=== PATIENT | male | born 1965 | race Two or more races ===

== ENCOUNTER 2019-07-12 21:17 | Inpatient (IN) | payer SELFPAY ==
[~2019-07-12] VITALS: Ht 182.9 cm; Wt 58.2 kg
[2019-07-12 21:23] VITALS: BP 143/85
[2019-07-12 21:30] VITALS: BP 143/85
--- NOTE | 2019-07-12 21:30 | NUR ---
TELE/RN ADMITTING NOTES: RECEIVED REPORT FROM RN ESME, PT ARRIVED TO UNIT AT 2130 FROM [facility] IN STABLE CONDITION, VIA GURNEY. A/OX4. VERBALLY RESPONSIVE AND ABLE TO MAKE NEEDS KNOWN. PATIENT STATED HIS SISTER WILL BE ARRIVING IN A FEW MINUTES. NO SOB NOTED, NO S/S OF ACUTE DISTRESS. BREATHING EVEN AND UNLABORED. ON TELE MONITOR WITH READING OF SR 70S. PATIENT IS AMBULATORY BUT INFORMED TO ASK FOR ASSISTANCE TO GO TO THE BATHROOM. SKIN IS INTACT. FULL CODE, ON 2GRAM NA DIET. IV LOCATED ON THE RIGHT FA #18G, INTACT, PATENT AND FLUSHING WELL. INFORMED PATIENT THAT STILL AWAITING FOR ORDERS, AND PLAN OF CARE. ORIENTED PT TO THE UNIT AND STAFF. BELONGINGS LIST CHECKED BY DAMEON SILVA V. NO HOME MEDS REPORTED. CURRENTLY PLACED ON AIRBORNE ISOLATION. SAFETY MEASURES ARE IN PLACE. BED IS IN LOW, LOCKED POSITION WITH SR UP X2. CALL LIGHT WITHIN REACH. WILL CONTINUE MONITORING PT. ACCORDINGLY.
[2019-07-12] MEDS ORDERED: ACETAMINOPHEN 325 MG TABLET PO PRN (22:00)
[2019-07-12] MEDS ORDERED: ONDANSETRON HCL/PF 4 MG/2 ML VIAL IVP PRN (22:00)
[2019-07-12] MEDS ORDERED: MAGNESIUM HYDROXIDE 30 ML UDC PO PRN (22:00)
[2019-07-12] MEDS ORDERED: HYDROCODONE/APAP 5/325MG 1 EACH TABLET PO PRN (22:00)
[2019-07-12] MEDS ORDERED: ZOLPIDEM TARTRATE 5 MG TABLET PO PRN (22:00)
[2019-07-12] MEDS ORDERED: LORAZEPAM INJ 2 MG/ML VIAL IV PRN (22:00)
[2019-07-12] MEDS ORDERED: Z GUARD REMEDY 2 OZ OINT TP PRN (22:00)
--- NOTE | 2019-07-12 22:00 | NUR ---
TELE/RN NOTES: SISTER AND BROTHER AT BED SIDE HELPING TRANSLATE QUESTIONS FOR PATIENT. PATIENT SPEAKS AND UNDERSTANDS [place] BUT PRIMARY LANGUAGE IS [facility]. NEW ORDERS CARRIED OUT AND NOTED. NS RUNNING AT 75ML/HR. ON 2GRAM DIET FOR NOW. VITAL SIGNS ARE WNL. IN STABLE CONDITION, NO COMPLAINS OF PAIN AT THIS TIME. ON ROOM AIR, SATURATING WELL. WILL CONTINUE MONITORING PATIENT ACCORDINGLY.
[2019-07-12] MEDS: IV NS 0.9% 1,000 ML IV PRN (22:53)
[2019-07-13] VITALS: BP 135/78
[2019-07-13] MEDS: FOLIC ACID 1 MG TABLET PO SCH ×2 (01:22→08:38)
[2019-07-13] MEDS: THIAMINE HCL 100 MG TABLET PO SCH ×2 (01:22→08:38)
[2019-07-13] MEDS: CHLORDIAZEPOXIDE HCL 5 MG CAPSULE PO SCH ×3 (01:35→17:05)
[2019-07-13 04:00] VITALS: BP 126/85
--- NOTE | 2019-07-13 06:46 | NUR ---
TELE/RN CLOSING NOTES: PATIENT IS IN STABLE CONDITION. A/OX4. VERBALLY RESPONSIVE AND ABLE TO MAKE NEEDS KNOWN. ON ROOM AIR, NO SOB NOTED, NO S/S OF ACUTE DISTRESS. BREATHING EVEN AND UNLABORED. ON TELE MONITOR WITH READING OF SR 60S. PATIENT IS AMBULATORY BUT INFORMED TO ASK FOR ASSISTANCE TO GO TO THE BATHROOM. IV ON THE RIGHT FA #18G, INTACT, PATENT AND FLUSHING WELL, RUNNING NS AT 75ML/HR. CURRENTLY PLACED ON AIRBORNE ISOLATION. ALL DUE MEDS GIVEN ORDERED. KEPT PATEINT WAMR AND COMFORTBLE THROUGHOUT THE SHIFT. ALL NURSING NEEDS MET AND PROVIDED AT THIS TIME. SAFETY MEASURES KEPT IN PLACE. BED IS IN LOW, LOCKED POSITION WITH SR UP X2. CALL LIGHT WITHIN REACH. WILL ENDORSE TO DAY SHIFT NURSE FOR AYAZ.
[2019-07-13 07:35] LABS: BASOPHILS # (AUTO) 0.1 /CMM (0.0-0.2); BASOPHILS % (AUTO) 1.1 % (0.0-2.0); EOSINOPHILS % (AUTO) 1.5 % (0.0-6.0); HEMATOCRIT 33 % (39-51); HEMOGLOBIN 11.3 g/dL (13.5-17.5); LYMPHOCYTES # (AUTO) 1.7 /CMM (0.8-4.8); LYMPHOCYTES % (AUTO) 35.5 % (20.0-44.0); MEAN CORPUSCULAR HGB CONC 34 g/dl (31.0-36.0); MEAN CORPUSCULAR VOLUME 101 fL (80-96); MONOCYTES # (AUTO) 0.3 /CMM (0.1-1.30); MONOCYTES % (AUTO) 6.4 % (2.0-12.0); NEUTROPHILS # (AUTO) 2.6 /CMM (1.8-8.9); NEUTROPHILS % (AUTO) 55.5 % (43.0-81.0); PLATELET COUNT (AUTO) 68 /CMM (150-450); RED BLOOD CELL COUNT(AUTO) 3.26 MIL/uL (4.5-6.0); WHITE BLOOD COUNT (AUTO) 4.7 K/uL (4.3-11.0)
--- NOTE | 2019-07-13 07:40 | NUR ---
FILM PRODUCER OPENING NOTE PATIENT IN BED RESTING COMFORTABLY. PATIENT IN NO ACUTE DISTRESS. NO SOB NOTED. PATIENT BREATHING IS EVEN AND UNLABORED. PATIENT ON CARDIAC MONITORING READING SINUS BRADYCARDIA HR 55. SAFETY PRECAUTIONS IN PLACE. PATIENT BED IS LOCKED AND IN LOWEST POSITION. CALL LIGHT WITHIN REACH. WILL CONTINUE TO MONITOR.
[2019-07-13 07:42] LABS: CALCIUM, SERUM 7.7 mg/dL (8.5-10.1); CREATININE 0.8 mg/dL (0.6-1.3); MAGNESIUM 1.3 mg/dL (1.8-2.4); PHOSPHORUS 3.1 mg/dL (2.5-4.9); POTASSIUM 3.9 mmol/L (3.5-5.1)
[2019-07-13 08:55] VITALS: BP 120/79
[2019-07-13 09:01] LABS: BAND % (MANUAL) 1 % (0.0-5.0); LYMPHOCYTES % (MANUAL) 34 % (16-48); MONOCYTES % (MANUAL) 4 % (0-11.0); NEUTROPHILS % (MANUAL) 61 (42-76)
[2019-07-13] MEDS: Magnesium 1GM/D5W 100ML PREMIX 100 ML IV SCH ×4 (09:29→13:00)
[2019-07-13] MEDS: IV NS 0.9% 1,000 ML IV PRN (13:00)
[2019-07-13 16:00] VITALS: BP 129/76
--- NOTE | 2019-07-13 18:37 | NUR ---
MS RN CLOSING NOTE PATIENT IN BED RESTING COMFORTABLY. PATIENT IN NO ACUTE DISTRESS. NO SOB NOTED. PATIENT BREATHING IS EVEN AND UNLABORED. PATIENT KEPT CLEAN, DRY, AND COMFORTABLE THROUGHOUT SHIFT. PATIENT MAINTAINED ON ISOLATION PRECAUTIONS. NEED AND CONCERNS ADDRESSED. SAFETY PRECAUTIONS IN PLACE. PATIENT BED IS LOCKED AND IN LOWEST POSITION. CALL LIGHT WITHIN REACH. WILL ENDORSE CARE TO PM SHIFT FOR AYAZ.
--- NOTE | 2019-07-13 19:30 | NUR ---
CHANGE OF SHIFT REPORT Patient in bed, tolerating RA, denies shortness of breath. IVF infusing. Appears comfortable in bed. Droplet, negative pressure isolation precaution, PPE utilized. Instructed to use call light for assistance, verbalized understanding.
[2019-07-13 20:00] VITALS: BP_SYST 126; BP_SYST 135; BP_DIAS 84; BP_DIAS 85
[2019-07-14] MEDS: CHLORDIAZEPOXIDE HCL 5 MG CAPSULE PO SCH ×3 (02:00→16:32)
[2019-07-14] MEDS: IV NS 0.9% 1,000 ML IV PRN ×2 (03:01→16:33)
--- NOTE | 2019-07-14 06:36 | NUR ---
END OF SHIFT REPORT Patient in bed, stable Oxygen saturation on RA. IVF maintained, denies pain. No c/o chest pain, no cough, afebrile overnight. Sputum not available at this time, will collect and send to lab when patient is able to provide, will endorse to oncoming RN. Hourly rounds, slept well. Airborne precaution, PPE utilized.
[2019-07-14 06:51] LABS: BASOPHILS % (AUTO) 0.9 % (0.0-2.0); EOSINOPHILS % (AUTO) 2.8 % (0.0-6.0); HEMATOCRIT 32 % (39-51); LYMPHOCYTES # (AUTO) 1.6 /CMM (0.8-4.8); LYMPHOCYTES % (AUTO) 31.1 % (20.0-44.0); MEAN CORPUSCULAR HGB CONC 34 g/dl (31.0-36.0); MEAN CORPUSCULAR VOLUME 102 fL (80-96); MONOCYTES # (AUTO) 0.4 /CMM (0.1-1.30); NEUTROPHILS # (AUTO) 2.9 /CMM (1.8-8.9); NEUTROPHILS % (AUTO) 58.2 % (43.0-81.0); PLATELET COUNT (AUTO) 61 /CMM (150-450); RED BLOOD CELL COUNT(AUTO) 3.15 MIL/uL (4.5-6.0); WHITE BLOOD COUNT (AUTO) 5.1 K/uL (4.3-11.0)
--- NOTE | 2019-07-14 07:23 | NUR ---
MS RN OPENING NOTE PATIENT IN BED RESTING COMFORTABLY. PATIENT IN NO ACUTE DISTRESS. NO SOB NOTED. PATIENT BREATHING IS EVEN AND UNLABORED. PATIENT MAINTAINED ON ISOLATION PRECAUTIONS. SAFETY PRECAUTIONS IN PLACE. PATIENT BED IS LOCKED AND IN LOWEST POSITION. CALL LIGHT WITHIN REACH. WILL CONTINUE TO MONITOR.
[2019-07-14 07:30] LABS: ALBUMIN 2.8 g/dL (3.4-5.0); BILIRUBIN,TOTAL 0.9 mg/dL (0.2-1.0); CALCIUM, SERUM 7.9 mg/dL (8.5-10.1); CREATININE 0.7 mg/dL (0.6-1.3); MAGNESIUM 1.7 mg/dL (1.8-2.4); PHOSPHORUS 3.3 mg/dL (2.5-4.9); POTASSIUM 3.1 mmol/L (3.5-5.1); TOTAL PROTEIN, SERUM 6.2 g/dL (6.4-8.2)
[2019-07-14 07:48] LABS: BAND % (MANUAL) 1 % (0.0-5.0); EOSINOPHILS % (MANUAL) 3 % (0-4); LYMPHOCYTES % (MANUAL) 31 % (16-48); MONOCYTES % (MANUAL) 7 % (0-11.0); NEUTROPHILS % (MANUAL) 58 (42-76)
[2019-07-14 08:00] VITALS: BP 125/72
[2019-07-14] MEDS: FOLIC ACID 1 MG TABLET PO SCH (08:50)
[2019-07-14] MEDS: THIAMINE HCL 100 MG TABLET PO SCH (08:50)
[2019-07-14] MEDS ORDERED: POTASSIUM CHLORIDE 20 MEQ TAB.PRT.SR PO ONE (09:30)
[2019-07-14] MEDS: Magnesium 1GM/D5W 100ML PREMIX 100 ML IV SCH ×2 (10:19→11:30)
[2019-07-14 16:00] VITALS: BP 143/94
--- NOTE | 2019-07-14 19:48 | NUR ---
RN NOTES RECEIVED PATIENT AWAKE, NO SIGNS OF DISTRESS, IV ACCESS INTACT AND PATENT, IVF INFUSING WELL, SAFETY MEASURES INPLACE, MAINTAINED ON ISOLATION PRECAUTION, DENIES ANY PAIN OR DISCOMFORT AT THIS TIME, CALL LIGHT WITHIN EASY REACH, WILL CONTINUE TO MONITOR ACCORDINGLY.
[2019-07-14 20:00] VITALS: BP 149/99
[2019-07-14 20:50] VITALS: BP 149/99
[2019-07-15] MEDS: CHLORDIAZEPOXIDE HCL 5 MG CAPSULE PO SCH ×3 (01:58→17:35)
[2019-07-15 06:43] LABS: BASOPHILS % (AUTO) 0.8 % (0.0-2.0); EOSINOPHILS % (AUTO) 3.7 % (0.0-6.0); HEMATOCRIT 32 % (39-51); HEMOGLOBIN 11.1 g/dL (13.5-17.5); LYMPHOCYTES # (AUTO) 1.7 /CMM (0.8-4.8); LYMPHOCYTES % (AUTO) 32.8 % (20.0-44.0); MEAN CORPUSCULAR HGB CONC 35 g/dl (31.0-36.0); MEAN CORPUSCULAR VOLUME 102 fL (80-96); MONOCYTES # (AUTO) 0.4 /CMM (0.1-1.30); NEUTROPHILS % (AUTO) 55.7 % (43.0-81.0); PLATELET COUNT (AUTO) 58 /CMM (150-450); RED BLOOD CELL COUNT(AUTO) 3.15 MIL/uL (4.5-6.0); WHITE BLOOD COUNT (AUTO) 5.3 K/uL (4.3-11.0)
--- NOTE | 2019-07-15 06:49 | NUR ---
RN NOTES ALL NEEDS ATTENDED AND MET ABLE TO REST AND SLEPT AT INTERVALS, MAINTAINED ON ISOLATION PRECAUTION, SAFETY MEASURES EMPHASIZED, CALL LIGHT WITHIN EASY REACH, ALL NEEDS ATTENDED, DENIES ANY PAIN AT THIS TIME, WILL ENDORSE TO AM NURSE FOR CONTINUITY OF CARE.
[2019-07-15 07:10] LABS: CALCIUM, SERUM 8.1 mg/dL (8.5-10.1); CREATININE 1.1 mg/dL (0.6-1.3); MAGNESIUM 1.6 mg/dL (1.8-2.4); PHOSPHORUS 4.2 mg/dL (2.5-4.9); POTASSIUM 3.6 mmol/L (3.5-5.1)
--- NOTE | 2019-07-15 07:37 | NUR ---
MS/RN NOTES OPENING NOTES RECEIVED PATIENT LYING IN BED RESTING COMFORTABLY. PATIENT IN NO ACUTE DISTRESS. NO SOB NOTED. PATIENT BREATHING IS EVEN AND UNLABORED. PATIENT KEPT CLEAN, DRY. IVF OF NS AT 75 ML/HR RUNNING WELL, PATENT AND INTACT. PATIENT MAINTAINED ON ISOLATION PRECAUTIONS. SAFETY PRECAUTIONS IN PLACE. PATIENT BED IS LOCKED AND IN LOWEST POSITION. CALL LIGHT WITHIN REACH. WILL CONTINUE TO MONITOR.
[2019-07-15 08:00] VITALS: BP 134/74
[2019-07-15] MEDS: THIAMINE HCL 100 MG TABLET PO SCH (09:20)
[2019-07-15] MEDS: FOLIC ACID 1 MG TABLET PO SCH (09:20)
--- NOTE | 2019-07-15 10:00 | NUR ---
MS/RN NOTES PLATELET COUNT OF 58, JAGDISH PRINCIPAL EMBEDDED SOFTWARE ENGINEER IS AWARE NO NEW ORDER.
[2019-07-15] MEDS: IV NS 0.9% 1,000 ML IV PRN ×2 (10:34→22:56)
[2019-07-15] MEDS: Magnesium 1GM/D5W 100ML PREMIX 100 ML IV SCH ×2 (10:35→13:39)
[2019-07-15 16:00] VITALS: BP 131/89
--- NOTE | 2019-07-15 17:55 | NUR ---
MS/RN CLOSING NOTES PATIENT IS ALERT AND ORIENTED X4. DENIES PAIN AT THIS TIME. NO RESPIRATORY DISTRESS NOTED. KEPT PATIENT CLEAN AND DRY. ADMINISTERED ALL DUE MEDS. IVF OF 0.9 NS 1L AT 75 ML/HR AT LEFT FOREARM 18 G INFUSING WELL. PATENT AND INTACT. BED IN LOWEST POSITION WITH SIDE RAILS UP X2. CALL LIGHT WITHIN REACH. STILL ON SPUTUM COLLECTION.WILL ENCORED TO FOLDER HAND.
--- NOTE | 2019-07-15 19:05 | NUR ---
MS RN OPENING NOTES Received patient A/O x4, awake, sitting on bed. On airborne precaution, observed by all HCP. On RA, no SOB/respiratory distress noted. Patient claimed with occasional productive cough less often at this time, with very scant whitish sputum at times. Patient denies any discomfort at this time. With LFA G#18 with NS infusing well @ 75ml/hr as ordered. IV site noted with old blood, patient claimed present upon insertion of the IV line. Will change dressing of the IV site. Kept patient on bed clean, dry and comfortable. Call light within easy reach. Will Continue to monitor accordingly.
--- NOTE | 2019-07-15 19:35 | NUR ---
MS RN NOTES Assessed IV site, WNL. Dressing changed aseptically. Secured IV line accordingly.
[2019-07-15 20:00] VITALS: BP_SYST 143; BP_SYST 145; BP_DIAS 87
[2019-07-16] MEDS: CHLORDIAZEPOXIDE HCL 5 MG CAPSULE PO SCH ×3 (00:38→17:28)
--- NOTE | 2019-07-16 06:31 | NUR ---
RN CLOSING NOTES Patient asleep, easily awaken. On RA, no SOB/respiratory distress noted, patient denies any discomfort at this time. Afebrile the whole shift. No new complaints made. All nursing needs attended, due meds given as ordered. Kept on bed clean, dry and comfortable. Call light within easy reach. Endorsed.
[2019-07-16 07:16] LABS: BASOPHILS # (AUTO) 0.1 /CMM (0.0-0.2); EOSINOPHILS % (AUTO) 4.1 % (0.0-6.0); HEMATOCRIT 33 % (39-51); HEMOGLOBIN 11.1 g/dL (13.5-17.5); LYMPHOCYTES # (AUTO) 1.8 /CMM (0.8-4.8); LYMPHOCYTES % (AUTO) 33.9 % (20.0-44.0); MEAN CORPUSCULAR HGB CONC 34 g/dl (31.0-36.0); MEAN CORPUSCULAR VOLUME 103 fL (80-96); MONOCYTES # (AUTO) 0.5 /CMM (0.1-1.30); MONOCYTES % (AUTO) 9.2 % (2.0-12.0); NEUTROPHILS # (AUTO) 2.7 /CMM (1.8-8.9); NEUTROPHILS % (AUTO) 51.8 % (43.0-81.0); PLATELET COUNT (AUTO) 73 /CMM (150-450); RED BLOOD CELL COUNT(AUTO) 3.18 MIL/uL (4.5-6.0); WHITE BLOOD COUNT (AUTO) 5.2 K/uL (4.3-11.0)
[2019-07-16 07:24] LABS: CALCIUM, SERUM 8.8 mg/dL (8.5-10.1); CREATININE 0.8 mg/dL (0.6-1.3); MAGNESIUM 1.5 mg/dL (1.8-2.4); POTASSIUM 3.9 mmol/L (3.5-5.1)
[2019-07-16 08:00] VITALS: BP 123/72
--- NOTE | 2019-07-16 08:08 | NUR ---
MS/RN OPENING NOTES RECEIVED PATIENT AWAKE ON BED RESTING COMFORTABLY. NO SHORTNESS OF BREATH NOTED. IN ROOM AIR. DENIES PAIN AT THIS TIME. AFEBRILE. BED IN LOWEST POSITION, SIDE RAILS UP X2. CALL LIGHT WITH IN REACH. WILL CONTINUE TO MONITOR.
--- NOTE | 2019-07-16 08:49 | NUR ---
MS/RN NOTES CALLED RT IF THEY CAN COLLECT SPUTUM FROM THE PATIENT. RT WILL COLLECT.
[2019-07-16] MEDS: FOLIC ACID 1 MG TABLET PO SCH (08:57)
[2019-07-16] MEDS: THIAMINE HCL 100 MG TABLET PO SCH (08:58)
[2019-07-16 09:15] LABS: EOSINOPHILS % (MANUAL) 1 % (0-4); LYMPHOCYTES % (MANUAL) 36 % (16-48); MONOCYTES % (MANUAL) 8 % (0-11.0); NEUTROPHILS % (MANUAL) 55 (42-76)
[2019-07-16] MEDS: Magnesium 1GM/D5W 100ML PREMIX 100 ML IV SCH ×2 (09:59→11:16)
[2019-07-16 16:00] VITALS: BP_SYST 123; BP_SYST 128; BP_DIAS 72; BP_DIAS 77
[2019-07-16] MEDS: IV NS 0.9% 1,000 ML IV PRN (17:32)
--- NOTE | 2019-07-16 18:35 | NUR ---
MS/RN CLOSING NOTES PATIENT IS ON BED RESTING COMFORTABLY . NO SHORTNESS OF BREATH NOTED. KEPT PATIENT CLEAN AND DRY. PATIENT BREATHING EVEN AND UNLABORED. IV LINE ON LFA18G PATENT AND INTACT. BED IS ON LOWEST POSITION AND LOCKED. SIDE RAILS UP X2. CALL LIGHT WITH IN REACH. SPUTUM WAS COLLETED BY RT AND SENT TO LAB. [phone] DUE PRESCRIBED MEDS WAS GIVEN. WILL ENDORSED TO NURSING SERVICES MANAGER.
[2019-07-16 20:53] VITALS: BP 130/79
[2019-07-17] MEDS: CHLORDIAZEPOXIDE HCL 5 MG CAPSULE PO SCH ×3 (00:40→17:59)
--- NOTE | 2019-07-17 00:54 | NUR ---
MS RN NOTES RECEIVED PATIENT AWAKE IN BED WITH NO DISTRESS NOTED. CALL LIGHT WITHIN REACH. PERIPHERAL LINE INTACT AND PATENT. NO C/O PAIN OR DISCOMFORT. ENCOURAGED USE OF CALL LIGHT FOR ASSISTANCE AND VERBALIZED GOOD UNDERSTANDING. BED IN LOW LOCK SETTING. ROOM FREE OF CLUTTER AND BELONGINGS KEPT NEAR BEDSIDE. WILL CONTINUE TO MONITOR.
--- NOTE | 2019-07-17 06:45 | NUR ---
MS RN NOTES PATIENT ASLEEP IN BED WITH NO DISTRESS NOTED. CALL LIGHT WITHIN REACH. ALL DUE MEDS GIVEN ORDERED WITH NO ASE. NO C/O PAIN OR DISCOMFORT. PERIPHERAL LINE INTACT AND PATENT. AIRBORNE ISOLATION OBSERVED AND MAINTAINED AT ALL TIMES. ROOM FREE OF CLUTTER AND BELONGINGS KEPT NEAR BEDSIDE. BED IN LOW LOCK SETTING WILL ENDORSE TO ONCOMING SHIFT.
--- NOTE | 2019-07-17 07:00 | NUR ---
MS/RN Opening Note Patient received AO x 4, able to responds all stimuli. Pt does no c/o any pain or discomfort. Skin is warm to touch, kept clean/dry, intact IV site. Respiratory even and unlabored. Kept lower position of bed with elevated HOB. Will continue to monitor
[2019-07-17 07:40] LABS: BASOPHILS # (AUTO) 0.1 /CMM (0.0-0.2); HEMATOCRIT 33 % (39-51); HEMOGLOBIN 11.5 g/dL (13.5-17.5); LYMPHOCYTES % (AUTO) 30.8 % (20.0-44.0); MEAN CORPUSCULAR HGB CONC 35 g/dl (31.0-36.0); MEAN CORPUSCULAR VOLUME 103 fL (80-96); MONOCYTES # (AUTO) 0.8 /CMM (0.1-1.30); MONOCYTES % (AUTO) 11.6 % (2.0-12.0); NEUTROPHILS # (AUTO) 3.4 /CMM (1.8-8.9); NEUTROPHILS % (AUTO) 51.6 % (43.0-81.0); PLATELET COUNT (AUTO) 103 /CMM (150-450); WHITE BLOOD COUNT (AUTO) 6.5 K/uL (4.3-11.0)
[2019-07-17 08:00] VITALS: BP 117/77
[2019-07-17 08:09] LABS: CALCIUM, SERUM 9.2 mg/dL (8.5-10.1); CREATININE 0.9 mg/dL (0.6-1.3); MAGNESIUM 1.5 mg/dL (1.8-2.4); POTASSIUM 4.1 mmol/L (3.5-5.1)
[2019-07-17] MEDS: FOLIC ACID 1 MG TABLET PO SCH (09:17)
[2019-07-17] MEDS: THIAMINE HCL 100 MG TABLET PO SCH (09:17)
[2019-07-17] MEDS ORDERED: Magnesium 1GM/D5W 100ML PREMIX 100 ML IV SCH (09:59)
[2019-07-17] MEDS: Magnesium 1GM/D5W 100ML PREMIX 100 ML IV SCH ×2 (10:03→11:08)
[2019-07-17 16:00] VITALS: BP 115/76
[2019-07-17 19:30] VITALS: BP 130/86
--- NOTE | 2019-07-17 19:30 | NUR ---
MS RN NOTES PATIENT IN BED, AWAKE, ALERT AND ORIENTED X 4. BREATHING EVEN AND UNLABORED ON ROOM AIR. DENIES ACUTE PAIN, NO ACUTE RESPIRATORY DISTRESS. IV ON L FOREARM #18G CLEAN DRY AND INTACT. SHOWS NO SIGN OF REDNESS, NO INFILTRATION. AIRBORNE PRECAUTION IN PLACE. SAFETY PRECAUTION IN PLACE. BED IN LOWEST POSITION, LOCKED, AND CALL LIGHT KEPT WITHIN REACH. WILL CONTINUE TO MONITOR.
[2019-07-17] MEDS: IV NS 0.9% 1,000 ML IV PRN (19:57)
[2019-07-17 20:58] VITALS: BP 130/86
[2019-07-18] MEDS: CHLORDIAZEPOXIDE HCL 5 MG CAPSULE PO SCH ×3 (00:53→17:10)
--- NOTE | 2019-07-18 06:40 | NUR ---
MS RN NOTES PATIENT IN BED, ASLEEP, ALERT AND ORIENTED X 4. BREATHING EVEN AND UNLABORED ON ROOM AIR. DENIES ACUTE PAIN, NO ACUTE RESPIRATORY DISTRESS. IV ON L FOREARM #18G CLEAN DRY AND INTACT RUNNING NS AT 75ML/HR. SHOWS NO SIGN OF REDNESS, NO INFILTRATION. AIRBORNE PRECAUTION IN PLACE. ALL DUE MEDICATIONS GIVEN. SAFETY PRECAUTION IN PLACE. BED IN LOWEST POSITION, LOCKED, AND CALL LIGHT KEPT WITHIN REACH. WILL ENDORSE TO ONCOMING NURSE
[2019-07-18 07:24] LABS: CALCIUM, SERUM 9.3 mg/dL (8.5-10.1); CREATININE 0.8 mg/dL (0.6-1.3); MAGNESIUM 1.7 mg/dL (1.8-2.4); POTASSIUM 4.3 mmol/L (3.5-5.1)
[2019-07-18 07:33] LABS: BASOPHILS # (AUTO) 0.1 /CMM (0.0-0.2); EOSINOPHILS % (AUTO) 3.9 % (0.0-6.0); HEMATOCRIT 35 % (39-51); LYMPHOCYTES % (AUTO) 27.3 % (20.0-44.0); MEAN CORPUSCULAR HGB CONC 34 g/dl (31.0-36.0); MEAN CORPUSCULAR VOLUME 103 fL (80-96); MONOCYTES % (AUTO) 13.3 % (2.0-12.0); NEUTROPHILS % (AUTO) 54.5 % (43.0-81.0); PLATELET COUNT (AUTO) 156 /CMM (150-450); RED BLOOD CELL COUNT(AUTO) 3.43 MIL/uL (4.5-6.0); WHITE BLOOD COUNT (AUTO) 7.3 K/uL (4.3-11.0)
[2019-07-18 08:00] VITALS: BP 104/63
--- NOTE | 2019-07-18 08:00 | NUR ---
ms rn received on bed, awake,alert,oriented x4,not in any form of distress,respirations even and unlabored,no sob noted, lungs are diminished,denies painat this time,all needs attended.
--- NOTE | 2019-07-18 09:30 | NUR ---
ms rn was seen by darryl briceño/ orders made and carried out.
[2019-07-18] MEDS: Magnesium 1GM/D5W 100ML PREMIX 100 ML IV SCH ×2 (10:40→12:15)
[2019-07-18] MEDS: FOLIC ACID 1 MG TABLET PO SCH (10:40)
[2019-07-18] MEDS: THIAMINE HCL 100 MG TABLET PO SCH (10:40)
--- NOTE | 2019-07-18 12:30 | NUR ---
ms rn due meds given,tolerated all needs atended.
[2019-07-18 16:00] VITALS: BP 114/69
--- NOTE | 2019-07-18 18:18 | NUR ---
ms rn on bed, no distress noted,all needs attended
--- NOTE | 2019-07-18 19:56 | NUR ---
MS RN OPENING NOTES RECEIVED PATIENT ALERT AND ORIENTED X 4. VERBALLY RESPONSIVE AND ABLE TO FOLLOW DIRECTIONS. BREATHING REGULAR AND UNLABORED ON ROOM AIR. LEFT FOREARM G18 IV LINE PATENT AND INTACT, INFUSING WELL WITH NO BLEEDING OR S/S OF INFECTION/INFILTRATION NOTED. SAFETY MEASURES IN PLACE, AIRBORNE, ISOLATION PRECAUTION MAINTAINED, BED IN LOW AND LOCKED ON SEMI FOWLERS POSITION. CALL LIGHT WITH IN EASY REACH. WILL CONTINUE TO MONITOR ACCORDINGLY.
[2019-07-18 20:00] VITALS: BP 130/89
[2019-07-18 20:38] VITALS: BP 130/89
[2019-07-19] MEDS: CHLORDIAZEPOXIDE HCL 5 MG CAPSULE PO SCH ×2 (00:38→08:43)
--- NOTE | 2019-07-19 07:15 | NUR ---
RN NOTES ALL NEEDS ATTENDED AND MET ABLE TO REST AND SLEPT AT INTERVALS SAFETY MEASURES IN PLACE, CALL LIGHT WITHIN EASY REACH, ISOLATION PRECAUTION MAINTAINED. ENDORSED TO AM NURSE FOR CONTINUITY OF CARE.
--- NOTE | 2019-07-19 07:32 | NUR ---
MS RN OPENING NOTES RECEIVED PATIENT IN BED RESTING COMFORTABLY IN MODERATE HIGH BACK REST. ALERT AND ORIENTED X 4. ABLE TO MAKE NEEDS KNOWN. NO SIGNS OF DISTRESS NOTED AT THIS TIME. IV FLUIDS ON LEFT FOREARM #18 WITH NS @75 ML/HR. PATENT AND INTACT, INFUSING WELL WITH NO BLEEDING OR S/S OF INFECTION/INFILTRATION NOTED. SAFETY MEASURES IN PLACE, AIRBORNE, ISOLATION PRECAUTION MAINTAINED, BED IN LOW AND LOCKED ON SEMI FOWLERS POSITION. CALL LIGHT WITH IN EASY REACH. WILL CONTINUE TO MONITOR ACCORDINGLY.
[2019-07-19 08:00] VITALS: BP 108/69
[2019-07-19 08:22] LABS: BASOPHILS # (AUTO) 0.1 /CMM (0.0-0.2); BASOPHILS % (AUTO) 1.4 % (0.0-2.0); EOSINOPHILS % (AUTO) 5.1 % (0.0-6.0); HEMATOCRIT 34 % (39-51); HEMOGLOBIN 11.7 g/dL (13.5-17.5); LYMPHOCYTES # (AUTO) 2.1 /CMM (0.8-4.8); LYMPHOCYTES % (AUTO) 31.8 % (20.0-44.0); MEAN CORPUSCULAR HGB CONC 34 g/dl (31.0-36.0); MEAN CORPUSCULAR VOLUME 103 fL (80-96); NEUTROPHILS % (AUTO) 45.7 % (43.0-81.0); PLATELET COUNT (AUTO) 191 /CMM (150-450); RED BLOOD CELL COUNT(AUTO) 3.31 MIL/uL (4.5-6.0); WHITE BLOOD COUNT (AUTO) 6.6 K/uL (4.3-11.0)
[2019-07-19 08:27] LABS: CALCIUM, SERUM 8.9 mg/dL (8.5-10.1); CREATININE 0.7 mg/dL (0.6-1.3); MAGNESIUM 1.7 mg/dL (1.8-2.4); POTASSIUM 3.9 mmol/L (3.5-5.1)
[2019-07-19] MEDS: FOLIC ACID 1 MG TABLET PO SCH (08:43)
[2019-07-19] MEDS: THIAMINE HCL 100 MG TABLET PO SCH (08:44)
[2019-07-19] MEDS: Magnesium 1GM/D5W 100ML PREMIX 100 ML IV SCH ×2 (10:24→11:25)
--- NOTE | 2019-07-19 16:02 | NUR ---
RN DISCHARGED NOTES PATIENT DISCHARGED IN STABLE CONDITION. A/O X4. ABLE TO MAKE NEEDS KNOWN. V/S TAKEN, STABLE AND RECORDED. PATIENT'S IV REMOVED AND APPLIED PRESSURE DRESSINGS. REFUSED SKIN ASSESSMENT. NAME ARM BAND REMOVED. ALL BELONGINGS CHECKED AND SIGNED. HEALTH TEACHINGS/DISCHARGED INSTRUCTIONS GIVEN AND VERBALIZED UNDERSTANDING. PATIENT LEFT UNIT AMBULATORY WITH FAMILY MEMBERS. NO SIGNS OF DISTRESS NOTED. CHARGE NURSE AWARE OF DISCHARGED.
== END 2019-07-19 16:00 | disposition home or self-care (01) | DRG 896 ==
LOC: TELE 21:17 → MED 07-13 08:13
PROVIDERS: ADMIT Nurse Practitioner Acute Care; ATTEND Family Medicine
DX: F10.239 Alcohol dependence with withdrawal, unspecified (principal); E43 Unspecified severe protein-calorie malnutrition; D61.818 Other pancytopenia; E87.2 Acidosis; E87.1 Hypo-osmolality and hyponatremia; G40.509 Epileptic seizures related to external causes, not intractable, without status epilepticus; Z68.1 Body mass index [BMI] 19.9 or less, adult; R64 Cachexia; B34.9 Viral infection, unspecified; Y90.9 Presence of alcohol in blood, level not specified; E86.0 Dehydration; F10.229 Alcohol dependence with intoxication, unspecified; D53.9 Nutritional anemia, unspecified; E87.6 Hypokalemia; F17.200 Nicotine dependence, unspecified, uncomplicated; E83.42 Hypomagnesemia; Z87.01 Personal history of pneumonia (recurrent); K76.0 Fatty (change of) liver, not elsewhere classified; J43.9 Emphysema, unspecified; E86.9 Volume depletion, unspecified; D69.6 Thrombocytopenia, unspecified
CPT/HCPCS: 36415; 71250-TC; 80048-TC; 80053-TC; 80061-TC; 83605-TC; 83735-TC; 84100-TC; 85025-TC; 87081-TC; 87116; 87206; 87556; G0378; J3475; J7030